=== PATIENT | female | born 1990 | race Hispanic/Latino ===

== ENCOUNTER 2020-01-30 22:52 | Emergency (ER) | payer OTHER ==
[2020-01-30 23:31] LABS: RAPID GROUP A STREP NEGATIVE (NEGATIVE)
[2020-01-31] MEDS ORDERED: IPRATROPIUM/ALBUTEROL SULFATE 3 ML SOLUTION IH ONE ×2 (00:32→00:50)
[2020-01-31] MEDS ORDERED: PREDNISONE 20 MG TABLET ONE (01:04)
== END 2020-01-31 01:39 | disposition home or self-care (01) ==
LOC: EDH 22:52
DX: J20.9 Acute bronchitis, unspecified (principal)
CPT/HCPCS: 71046; 87804; 87880; 94640

== ENCOUNTER 2024-11-08 05:23 | Emergency (ER) | payer SELFPAY ==
[~2024-11-08] VITALS: Ht 160 cm; Wt 120.9 kg
--- NOTE | 2024-11-08 05:25 | NUR ---
UA CUP PROVIDED
[2024-11-08] MEDS ORDERED: TAMS-1 PO (05:44)
--- NOTE | 2024-11-08 05:44 | ERN ---
ED Note History of Present Illness Stated Complaint: LEFT FLANK PAIN Chief Complaint: Flank Pain Time Seen by MD: 05:31 Dictation: This is a 34-year-old morbidly obese female who presented to the emergency room with complaints of severe left flank pain that started today. She stated that after she woke around 4:30 a.m. she began experiencing excruciating flank pain on the left side with dark urine. She had a similar presentation in the past when she was told she had a kidney stone. She did not get any relief from the pain which warranted an ER visit. No history of any fever chills rigors Temperature 97.6 pulse 69 respirations 16 blood pressure 137/70 with a pulse oximetry of 98% on room air Her chronic medical problems include history of nephrolithiasis Allergies: Coded Allergies: No Known Drug Allergies (Verified Allergy, Unknown, 06/08/15) Home Meds Active Scripts Tamsulosin HCl (Flomax) 0.4 Mg Cap.er.24h, 0.4 MG PO DAILY, #30 CAPSULE.DR Prov:GAGE UMANA MD 11/08/24 Past Medical History Past Medical History: Kidney Stone Surgical History: Family History: Negative Social History: Negative LMP: Oct 25, 2024 RN Note Reviewed/Agreed w/PFSH: Yes Review of System Dictation Constitutional: Negative for fever,chills, and weight loss Eyes: Negative for injury, pain,redness, and discharge ENT: Negative for injury,pain or swelling Cardiovascular: Negative for chest pain, palpitations, and edema Respiratory: Negative for shortness of breath, cough, and wheezing, Abdomen/GI: Negative for abdominal pain, nausea, vomiting, diarrhea, and constipation Back: Negative for injury and pain : Negative for injury, bleeding and discharge SEVERE LEFT FLANK PAIN RADIATING AROUND TO THE INGUINAL AREA. MS/Extremity: Negative for injury and deformity Skin: Negative for rash, and discoloration Neuro: Negative for headache, weakness, numbness, tingling, and seizure Psych: Negative for suicide ideation, homicidal ideation, and hallucinations Initial Vital Sign VS Vital Signs Date Time Temp Pulse Resp B/P (MAP) Pulse Ox O2 Delivery O2 Flow Rate FiO2 11/08/24 05:24 97.5 69 16 137/70 99 Room Air 11/08/24 06:03 0 21 Physical Exam Dictation General: awake, alert, NAD morbidly obese female Head/Face: Normocephalic, atraumatic Eyes: PERRL, EOMI, vision at baseline ENT: oral cavity clear, TMs clear, no signs of infection Neck: Trachea midline, supple, no nuchal rigidity Cardiovascular: RRR, normal S1/S2, No MRGs, no JVD Respiratory: CTAB, no respiratory distress, No rales or wheezes Abdomen: Soft, non-tender, non-distended, normal bowel sounds, no guarding or rebound. Skin: Warm, dry, normal turgor, no rash MS/Extremity: Pulses equal, no cyanosis, neurovascular intact, FROM Neuro: COAx4, GCS 15, strength 5/5, CN 2-12 intact, normal cerebellar exam, normal gait, Psych: Normal behavior, mood, and affect normal Extremities-trace edema without any palpable cords, Homans sign is negative Results (Laboratory/Radiology) Laboratory/Radiology Laboratory Tests Test 11/08/24 05:28 Urine Color DARK-BROWN (YELLOW) Urine Appearance TURBID (CLEAR) Urine pH 5.5 (5.0-8.0) Urine Specific [place] 1.027 (1.001-1.031) Urine Protein 70 mg/dL (NEGATIVE) H Urine Glucose (UA) NEGATIVE mg/dL (NEGATIVE) Urine Ketones 5 mg/dL (NEGATIVE) H Urine Occult Blood LARGE (NEGATIVE) H Urine Nitrate NEGATIVE (NEGATIVE) Urine Bilirubin NEGATIVE mg/dL (NEGATIVE) Urine Urobilinogen 0.2 mg/dL (0.2-1.0) Urine Leukocyte Esterase 25 Jessi/uL (NEGATIVE) H Urine RBC TNTC /HPF (0-1) H Urine WBC 2-5 /HPF (0-1) H Urine Squamous Epithelial Cells FEW /HPF (0-2) Urine Bacteria None /HPF (None Seen) Urine Yeast MANY /HPF (None Seen) Urine HCG, Qualitative NEGATIVE (NEGATIVE) Labs Reviewed?: Yes ED Course ED Course Orders Procedure Category Date Status Time ,Urine Test LAB 11/08/24 Complete 05:28 Hydromorphone 1 Mg PHA 11/08/24 Complete Inj (Dilaudid 1mg Inj 06:00 Tamsulosin Hcl PHA 11/08/24 Complete (Flomax) 06:00 0.9% Nacl 500ml PHA 11/08/24 Complete Iv.Soln (Ns 500ml 06:00 Urinalysis LAB 11/08/24 Complete W/Microscopic 05:28 Current Medications Medications (Trade) Dose Ordered Sig/Amairani Route PRN Reason Start Time Stop Time Status Last Admin Dose Admin Hydromorphone HCl (DiLAUDid 1MG INJ) 1 mg ONCE ONCE IVP 11/08/24 06:00 11/08/24 06:01 DC 11/08/24 05:55 Sodium Chloride 500 ml @ 0 mls/hr ONCE ONCE IV 11/08/24 06:00 11/08/24 06:01 DC 11/08/24 05:55 Tamsulosin HCl (FloMAX) 0.4 mg ONCE ONCE PO 11/08/24 06:00 11/08/24 06:01 DC 11/08/24 05:55 Vital Signs Date Time Temp Pulse Resp B/P (MAP) Pulse Ox O2 Delivery O2 Flow Rate FiO2 11/08/24 06:03 97.9 62 19 119/46 96 Room Air* 0 21 11/08/24 05:24 97.5 69 16 137/70 99 Room Air We will perform diagnostic labs, advanced imaging and administer medications according to the patient's complaint. Once the results are available, will review and personally interpreted the labs to rule out any acute life- threatening emergency the trach require immediate intervention and treatment. I will then re-evaluate the patient after treatment and diagnostic exams have return to determine whether the patient requires any further testing, can safely be discharged home or need further admission to hospital for additional treatment and evaluation. Urinalysis shows gross hematuria. No evidence of any UTI. She responded very well to symptomatic treatment. Since clinically she looks significantly improved, we will discharge her on antispasmodics and pain medicine. 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 She verbalized full understanding and is agreeable to the plan Medical Decision Making MDM MDM: Differential diagnosis: Renal colic, pyelonephritis, hydronephrosis, diverticulitis, lumbar radiculopathy Rationale: Tests considered and ordered secondary to shared decision making include: Previous outside records reviewed: Old ER visits. Risk of complication and/or morbidity or mortality of patient management: None Medications-Per medication reconciliation Need for hospitalization: Patient does not meet criteria for hospitalization. Need for emergency major/minor surgery: No There are no social concerns with this patient. Prescription drug management Prescriptions will include symptomatic care Patient's prior external medical records from other ER visits were reviewed by me as indicated. Prior testing and results from previous visits were reviewed. Prior tests were taken into account with medical decision making and resource utilization, independent historian/historians were used to obtain complete medical history. I independently interpreted the test that were performed, results were reviewed by me and considered findings on radiology if ordered. Medical management and examination interpretation discussions were had by me with other qualified healthcare professionals as indicated for the patient's care. Problem List Problem List: (1) Renal colic on left side (2) Nephrolithiasis DX & DISP Disposition: Discharge Departure Impression: Primary Impression: Renal colic on left side Additional Impression: Nephrolithiasis Condition: Stable Scripts Acetaminophen with Codeine (Acetaminophen-Cod #3 Tablet) 300 Mg-30 Mg Tablet 1-2 TAB PO Q6H PRN for kidny pain, #15 TAB Prov: GAGE UMANA MD 11/08/24 Tamsulosin HCl (Flomax) 0.4 Mg Cap.er.24h 0.4 MG PO DAILY, #30 CAPSULE.DR Prov: GAGE UMANA MD 11/08/24 Additional Instructions: Patient and the caregiver have been informed of all the diagnostic tests and the imaging conducted during the today's visit to the emergency room and has verbalized understanding of the results I have personally reviewed and interpreted all diagnostic exams performed here in the ER today as well as the vital signs documented by the nursing staff. The patient is now being discharged to home and should follow up with the primary care physician or the specialist as directed by the ER staff. Follow-up with primary care provider in 1 to 2 days. Take medications as directed here in the emergency room. Okay to continue home medications unless otherwise discussed during your visit in the emergency room today. Return to your nearest emergency room if symptoms worsen or if there is no improvement. Call 911 if you need immediate assistance. Take Tylenol or Motrin [id number] as needed and if no contraindications are present. Increase oral hydration. A wound culture or urine culture was ordered here in the emergency room department please follow-up with primary care provider and advise them to get repeat ports from our facility. If you had any [place] wrap/splints that were applied here, please do not remove them until you see your primary care or specialty. Referrals: SELF,REFERRAL (PCP) GAGE UMANA MD Nov 08, 2024 05:44
[2024-11-08] MEDS: 0.9% NACL 500ML IV.SOLN 500 ML IV ONE (05:55)
[2024-11-08] MEDS: hydroMORPHone 1 MG INJ IVP ONE (05:55)
[2024-11-08] MEDS: tamSULOsin HCL 0.4 MG CAP.ER.24H PO ONE (05:55)
[2024-11-08 06:03] VITALS: BP 119/46; PULSE 62; RESP 19; TEMP 97.8; O2SAT 96
[2024-11-08 06:18] LABS: HCG,QUALITATIVE URINE NEGATIVE (NEGATIVE)
[2024-11-08 06:25] LABS: APPEARANCE,URINE TURBID (CLEAR); BILIRUBIN,URINE NEGATIVE (NEGATIVE); COLOR,URINE DARK-BROWN (YELLOW); GLUCOSE, URINE (UA) NEGATIVE (NEGATIVE); KETONES,URINE 5 mg/dL (NEGATIVE); LEUKOCYTE ESTERASE ,URINE 25 Leu/uL (NEGATIVE); MUCUS,URINE RARE LPF (None Seen); NITRATE,URINE NEGATIVE (NEGATIVE); OCCULT BLOOD,URINE LARGE (NEGATIVE); PH,URINE 5.5 (5.0-8.0); PROTEIN,URINE 70 mg/dL (NEGATIVE); RBC,URINE TNTC /HPF (0-1); SQUAMOUS EPITHELIAL CELL,UR FEW /HPF (0-2); UROBILINOGEN,URINE 0.2 mg/dL (0.2-1.0); YEAST,URINE BUDDING MANY /HPF (None Seen)
[2024-11-08] MEDS ORDERED: ACET-2079 PO (06:40)
== END 2024-11-08 06:55 | disposition home or self-care (01) ==
LOC: EDH 05:23
DX: N23 Unspecified renal colic (principal); N20.0 Calculus of kidney; E66.01 Morbid (severe) obesity due to excess calories; Z68.42 Body mass index [BMI] 45.0-49.9, adult
CPT/HCPCS: 99283; 96374; 81001; 81025; J7040; J1171